=== PATIENT | female | born 1955 | race Hispanic/Latino ===

== ENCOUNTER 2017-07-14 13:18 | Emergency (ER) | payer BC ==
[~2017-07-14] VITALS: Ht 165.1 cm; Wt 72.1 kg
--- OUTSIDE RECORDS SUMMARY | 2017-07-14 13:21 | XMS REPORT | Clinical Summary ---
Author Author [facility] Address Unknown Phone Unavailable Care Team Providers Care Mis Manager Name Role Phone PCP Unavailable Allergies No Known Allergies Current Medications No known medications Active Problems Problem Noted Date Acute medial meniscus tear, right, subsequent encounter 07/12/2017 Encounters Date Type Specialty Care Team Description 07/12/2017 [facility] Miguel Regalado MD S/P right knee Encounter arthroscopy (Primary Dx) 07/12/2017 Procedure Pass 07/12/2017 Surgery Miguel Regalado MD ARTHROSCOPY,KNEE MENISCECTOMY 07/11/2017 Anesthesia Bernice Moreno MD Event 06/26/2017 Hospital Pre-Admission Testing Miguel Regalado MD Encounter after 07/13/2016 Social History Tobacco Use Types Packs/Day Years Used Date Never Smoker Smokeless Tobacco: Never Used Alcohol Use Drinks/Week oz/Week Comments No Sex Assigned at Date Recorded Not on file Last Filed Vital Signs Vital Sign Reading Time Taken Blood Pressure 114/64 07/12/2017 11:00 AM CDT Pulse 76 07/12/2017 11:00 AM CDT Temperature 36.6 C (97.9 F) 07/12/2017 11:00 AM CDT Respiratory Rate 15 07/12/2017 11:00 AM CDT Oxygen Saturation 97% 07/12/2017 11:00 AM CDT Inhaled Oxygen - - Concentration Weight 72.3 kg (159 lb 6.4 oz) 07/12/2017 7:15 AM CDT Height 165.1 cm (5' 5") 07/12/2017 7:15 AM CDT Body Mass Index 26.53 07/12/2017 7:15 AM CDT Plan of Treatment Not on file Procedures Procedure Name Priority Date/Time Associated Diagnosis Comments ARTHROSCOPY,KNEE 07/12/2017 Tear of medial meniscus CHONDROPLASTY SHAVING 9:25 AM CDT of right knee, unspecified tear type, unspecified whether old or current tear, initial encounter ARTHROSCOPY,KNEE 07/12/2017 Tear of medial meniscus MENISCECTOMY 9:25 AM CDT of right knee, unspecified tear type, unspecified whether old or current tear, initial encounter after 07/13/2016 Results Not on fileafter 07/13/2016
--- OUTSIDE RECORDS SUMMARY | 2017-07-14 13:21 | XMS REPORT ---
[facility] Address Unknown Phone Unavailable Care Team Providers Care Optical Laboratory Technician Name Role Phone Unavailable Unavailable Problems This patient has no known problems. Allergies, Adverse Reactions, Alerts This patient has no known allergies or adverse reactions. Medications This patient has no known medications. Results Test Description Test Time Test Comments Text Results Atomic Results Result Comments MRI LWR LEG RT WO CLINICAL INDICATION: M79.669 Pain in unspecified lower leg. Mass posterior distal right upper leg. Skin marker placed in the area of interest. Varicose vein surgery. Pain radiates down passed the knee.MODALITY: [place] 1.2 [place] Open MRITECHNIQUE: Multiplanar multisequence MRI of the distal aspect of the right upper leg was performed.IMPRESSION:Trace amount of fluid within the semimembranosus/knee gastrocnemius bursa. Otherwise MRI of the distal right upper leg within normal limits. Specifically no definite focal mass in the area of concern with overlying skin marker.FINDINGS:Area of concern was skin marker overlying the posterior lateral aspect of the distal right thigh reveals no significant focal underlying abnormality. No underlying focal mass.The muscles and tendons are intact.The osseous structures reveal no fractures, reactive bone edema, or any marrow replacement process.Stabilizing ligaments about the patient s knee are intact. Trace amount of fluid within the semimembranosus/medial gastrocnemius bursa. MRI LWR LEG LT WO CLINICAL INDICATION: M79.669 Pain in unspecified lower leg. MODALITY: [place] 1.2 [place] Open MRITECHNIQUE: Multiplanar multisequence MRI of the left leg was performed.IMPRESSION: Unremarkable MRI of the left leg.FINDINGS:Left tibia and fibula demonstrate normal alignment. No fractures or destructive osseous lesions are seen. Marrow signal is unremarkable. Mass or cyst in the left leg is not detected. Musculature of the left leg appears unremarkable. A capsule type skin marker is seen at the medial aspect of calf, indicating site of patient s pain or tenderness, and reportedly site of a small bruise. MR appearance of the underline soft tissues is unremarkable.
== END 2017-07-14 15:09 | disposition home or self-care (01) ==
LOC: FSED 13:18
DX: Z48.01 Encounter for change or removal of surgical wound dressing (principal); M25.561 Pain in right knee
CPT/HCPCS: 99284

== ENCOUNTER 2024-01-15 03:17 | Emergency (ER) | payer BC, MEDICARE ==
[~2024-01-15] VITALS: Ht 165.1 cm; Wt 72.1 kg
[2024-01-15 03:20] VITALS: PULSE 86; RESP 18; TEMP 98.5
[2024-01-15] MEDS: ONDANSETRON HCL INJ 2MG/ML 2ML 2 MG/ML VIAL IV ONE ×2 (04:08→06:55)
[2024-01-15] MEDS: KETOROLAC TROMETHAMINE 30 MG/ML VIAL IV ONE (04:09)
[2024-01-15] MEDS: FAMOTIDINE 20 MG/2 ML VIAL IV ONE (04:09)
[2024-01-15] MEDS: LACTATED RINGER'S 1,000 ML IV ONE (04:10)
[2024-01-15] MEDS ORDERED: FAMOTIDINE20 MG PO (05:50)
[2024-01-15] MEDS ORDERED: ONDANSETRON ODT4 MG PO (05:50)
[2024-01-15] MEDS ORDERED: MAALOX MAXIMUM355 ML PO (05:50)
[2024-01-15] MEDS ORDERED: ONDANSETRON HCL INJ 2MG/ML 2ML 2 MG/ML VIAL ONE (05:58)
[2024-01-15 06:48] VITALS: BP 127/65; PULSE 70; RESP 18; TEMP 98.3; O2SAT 99
== END 2024-01-15 06:00 | disposition home or self-care (01) ==
LOC: FSED 03:30
DX: R11.2 Nausea with vomiting, unspecified (principal); K52.9 Noninfective gastroenteritis and colitis, unspecified; R10.13 Epigastric pain; K44.9 Diaphragmatic hernia without obstruction or gangrene; E78.5 Hyperlipidemia, unspecified
CPT/HCPCS: 74176; 80048; 80076; 81003; 82553; 84484; 85025; 93005; 99284; J1885; J2405; J7121

== ENCOUNTER 2024-12-06 16:30 | Emergency (ER) | payer MEDICARE ==
[~2024-12-06] VITALS: Ht 162.6 cm; Wt 73.1 kg
[~2024-12-06 16:30] MED LIST: FAMOTIDINE20 MG PO; MAALOX MAXIMUM355 ML PO; ONDANSETRON ODT4 MG PO
[2024-12-06 16:34] VITALS: PULSE 82; RESP 20; TEMP 97.4
[2024-12-06] MEDS ORDERED: IBUPROFEN600 MG PO (18:14)
[2024-12-06 18:23] VITALS: BP 128/64; PULSE 75; RESP 18; TEMP 97.8; O2SAT 97
== END 2024-12-06 18:22 | disposition home or self-care (01) ==
LOC: FSED 16:33
DX: M79.672 Pain in left foot (principal); M77.32 Calcaneal spur, left foot; E78.5 Hyperlipidemia, unspecified; M19.09 Primary osteoarthritis, other specified site
CPT/HCPCS: 99284